=== PATIENT | male | born 1970 | race Hispanic/Latino ===

== ENCOUNTER 2022-12-27 08:15 | Emergency (ER) | payer BC ==
[~2022-12-27] VITALS: Ht 160 cm; Wt 50.0 kg
[2022-12-27 09:50] VITALS: BP 139/99
[2022-12-27 10:00] VITALS: BP 130/97
[2022-12-27 10:15] VITALS: BP 139/90
[2022-12-27 10:30] VITALS: BP 128/95
[2022-12-27 10:45] VITALS: BP 137/92
[2022-12-27] MEDS ORDERED: AMOX/K CLAV875 M1 PO (10:45)
[2022-12-27 11:01] VITALS: BP 109/87
== END 2022-12-27 11:04 | disposition home or self-care (01) | DRG 153 ==
LOC: ED 08:15
DX: H66.92 Otitis media, unspecified, left ear (principal)